=== PATIENT | female | born 1960 | race African-American/Black ===

== ENCOUNTER 2025-10-18 13:57 | Emergency (ER) | payer MEDICAID ==
[2025-10-18] MEDS ORDERED: Ketorolac Tromethamine 30 MG (1 mL) VIAL ONE (15:17)
[2025-10-18] MEDS ORDERED: Methocarbamol 500 MG TAB ONE (15:17)
== END 2025-10-18 15:40 | disposition home or self-care (01) ==
LOC: CSHERS 13:57
DX: M54.12 Radiculopathy, cervical region (principal); R20.2 Paresthesia of skin; R29.700 NIHSS score 0; J44.9 Chronic obstructive pulmonary disease, unspecified; F17.210 Nicotine dependence, cigarettes, uncomplicated; Z95.0 Presence of cardiac pacemaker
CPT/HCPCS: 96372; 99283; J1885